=== PATIENT | male | born 1965 | race Hispanic/Latino ===

== ENCOUNTER 2018-04-02 10:51 | Outpatient (CLI) | payer OTHER ==
--- NOTE | 2018-04-02 12:18 | RAD ---
TWO VIEW CHEST: Indications: Cough. History of throat cancer. Comparison: None available. FINDINGS: There is abnormal opacity in the right perihilar region and there is a rounded mass like opacity in t he peripheral right midlung measuring up to 4 cm diameter. Left lung appears clear. Heart and mediastinum otherwise unremarkable. Osseous structures unremarkabl e. IMPRESSION: Abnormal right perihilar opacity and a rounded mass like density in the peripheral right midlung. Met astatic disease to the lung is suspected. I cannot exclude co-existing inflammatory infiltrate. Consi rory follow up chest CT. Code T POS: [facility]
== END 2018-04-02 10:52 | disposition home or self-care (01) ==
LOC: SCSRAD 10:51
PROVIDERS: ATTEND Nurse Practitioner Family
DX: R05 Cough (principal); R91.8 Other nonspecific abnormal finding of lung field
CPT/HCPCS: 71046

== ENCOUNTER 2018-04-05 12:32 | Outpatient (CLI) | payer OTHER ==
--- NOTE | 2018-04-05 14:54 | CT ---
CT CHEST WITH CONTRAST: Technique: Multiple contiguous axial images were obtained through the chest with IV enhancement. Indications: Evidence of right lung mass seen on chest film of 04-02-18. Cough. History of tonsil cance r. FINDINGS: There is prominent right perihilar and mediastinal adenopathy. There is a right perihilar mass measur ing 4.3 cm in the AP dimension on the axial plane. There is a more peripheral mass in the right lung abutting the posterolateral pleural surface measuri ng 3.7 cm AP dimension. The perihilar mass is located in the right middle lobe. The more peripheral m ass is located in the superior segment of the right lower lobe. There is hazy alveolar opacity in the right middle lobe surrounding the described mass which could re present inflammatory infiltrate. There are numerous small pulmonary nodules seen throughout both lungs which were not apparent on plai n film. Most of these nodules are subcentimeter. There is a right lower lobe nodule measuring up to 1 .2 cm and there is a left lower lobe nodule measuring up to 1.0 cm. Images through the upper abdomen are unremarkable. IMPRESSION: 1. Extensive right hilar and mediastinal adenopathy. 2. Right perihilar mass in the right middle lobe with possibly surrounding inflammatory infiltrate. 3. Peripheral pleural based mass in the superior segment right lower lobe as described above. 4. Numerous pulmonary nodules throughout both lungs as described above. POS: [facility]
== END 2018-04-05 12:33 | disposition home or self-care (01) ==
LOC: BICCT 12:32
PROVIDERS: ATTEND Nurse Practitioner Family
DX: R91.8 Other nonspecific abnormal finding of lung field (principal); R59.0 Localized enlarged lymph nodes; Z85.89 Personal history of malignant neoplasm of other organs and systems
CPT/HCPCS: 71260

== ENCOUNTER 2018-05-18 09:06 | Outpatient (CLI) | payer OTHER ==
--- NOTE | 2018-05-18 14:31 | PET ---
PET WITH CT SKULL TO MID THIGH: CLINICAL HISTORY: Pulmonary mass. Reference made to CT chest with contrast dated 04/05/18. There is appropriate biodistribution of radiotracer activity. RADIOTRACER: 11.5 mCi F18-FDG IV intermixed with 10 mL of 0.9% sodium chloride. FINDINGS: There is multifocal hypermetabolic adenopathy of the chest, which infiltrates the right paratracheal region, left prevascular space, and the bilateral hilar regions, as well as the subcarina. Maximum JULIO V is approximately 11, located within the right hilum. There is a mass-like consolidation of the righ t perihilar region with maximum SUV of 8.8. There is an adjacent rounded parenchymal mass of the righ t lower lobe, with maximum SUV of 9.7. Numerous bilateral metastatic pulmonary nodules are present, w hich are below size threshold for PET resolution. Incidental note of mild pericardial fluid. There is coronary artery disease. Incidental note of scatt ered colonic diverticula. IMPRESSION: Evidence of multifocal malignancy of the right lung, with bilateral metastatic adenopathy and bilater al metastatic pulmonary nodules. POS: [facility]
== END 2018-05-18 09:07 | disposition home or self-care (01) ==
LOC: PET 09:06
PROVIDERS: ATTEND Internal Medicine
DX: R91.8 Other nonspecific abnormal finding of lung field (principal); C76.0 Malignant neoplasm of head, face and neck; C34.91 Malignant neoplasm of unspecified part of right bronchus or lung; R59.9 Enlarged lymph nodes, unspecified
CPT/HCPCS: 78815; A9552

== ENCOUNTER 2018-05-25 08:57 | Day surgery (SDC) | payer OTHER ==
[2018-05-21 13:13] VITALS: BMI 28.7
[2018-05-25] MEDS ORDERED: Fentanyl 100 MCG/2 ML VIAL ONE (11:22)
[2018-05-25] MEDS ORDERED: PHENYLEPHRINE-NS 100 MCG/ML 10 ML SYRINGE ONE (13:21)
[2018-05-25] MEDS ORDERED: Ondansetron PF 4 MG/2 ML Vial ONE (13:21)
[2018-05-25] MEDS ORDERED: Rocuronium Bromide 10 MG/ML (10ML VIAL) ONE (13:21)
[2018-05-25] MEDS ORDERED: ePHEDrine 50 MG/ML VIAL ONE (13:21)
[2018-05-25] MEDS ORDERED: Lidocaine 1% PF 5 ML VIAL ONE (13:21)
[2018-05-25] MEDS ORDERED: Glycopyrrolate 0.2 MG/ML 5 ML SYRINGE ONE (13:21)
[2018-05-25] MEDS ORDERED: PROPOFOL 200 MG/20 ML VIAL ONE (13:21)
[2018-05-25 14:47] LABS: BF Color Red; Body Fluid Source Bronchial Washings; Clarity Cloudy/Turbid (Clear); Tube # 1
[2018-05-25 14:48] LABS: RBC Count-Automated 237000 /cumm; WBC/NonHematic-Auto 779 /cumm
[2018-05-25 15:29] LABS: BF Segmented Neutrophils 8 %; Cell Count Non Hematic 75 %; Lymphocytes 17 %
--- NOTE | 2018-05-25 21:06 | OP ---
DATE OF PROCEDURE: 05/25/2018 SERVICE: Pulmonary Medicine. PROCEDURE PERFORMED: 1. Fiberoptic bronchoscopy with: a. Visual airway inspection. b. Endobronchial brush from the right lower lobe. c. Bronchoalveolar lavage from the right lower lobe. d. Transbronchial biopsy of the right lower lobe. 2. Endoscopic bronchial ultrasound-guided transbronchial needle aspiration of stations R3, 7. PREPROCEDURE DIAGNOSES: 1. Pulmonary mass. 2. Mediastinal lymphadenopathy. POSTPROCEDURE DIAGNOSES: 1. Mediastinal lymphadenopathy. 2. Pulmonary mass. MEDICATIONS: For list of medications administered during this procedure, please refer to Anesthesia documentation. PREANESTHESIA ASSESSMENT: H and P had been performed. The patient's medications and allergies were reviewed. CONSENT: Informed consent was obtained after discussing the rationale benefits and risks of the procedure. Alternative options for sample collection were discussed. DESCRIPTION OF PROCEDURE: A time-out was performed. The patient was positively identified with name and date of . The procedure was verified. After induction of anesthesia, a curvilinear endoscopic bronchial ultrasound Olympus bronchoscope was introduced through the endotracheal tube. A limited visual airway inspection was performed with no disease noted within the mainstem bronchi. The bronchoscope was withdrawn, and a wesley survey was performed. Ultimately, endoscopic bronchial guided TBNA of stations R3, and 7 was performed. There was no significant bleeding post biopsy. The patient has stable vitals throughout the procedure. The EBUS bronchoscope was subsequently removed from the patient, and we switched over to diagnostic fiberoptic bronchoscope. The new bronchoscope was introduced, and a tracheobronchial tree inspection was carried out with clear identification of the right upper lobe, right middle lobe, right lower lobe, left upper lobe, lingula, and left lower lobe. Anatomy was essentially normal to the segmental level. There was diffuse endobronchial disease in the right lung, which was not present in the left lung. The area of interest we wanted to get into is a superior segment of the right lower lobe. This was technically challenging. I could not direct the brush or the biopsy forceps into the area of interest. As such, we took some random brushing samples, and transbronchial biopsies under fluoroscopy. That being said, I have a low level of confidence that we got into the area of interest. BAL was also obtained from the superior segment of the right lower lobe. Hemostasis was verified, and the bronchoscope was subsequently removed from the patient. Postprocedure fluoroscopy did not demonstrate a pneumothorax. FINDINGS: 1. Secretions were mild, but quite thick. 2. No endobronchial disease was identified in the left lung. The right lung had diffuse inflammatory changes. 3. The victor m appeared mostly sharp. 4. Rapid on-site examination revealed that lymphoid tissue was obtained. Squamous cell carcinoma was present at both R3 and 7. SPECIMENS OBTAINED: 1. FNA of stations R3, 7. 2. Pathology on BAL, brushings, and transbronchial biopsy. 3. Microbiology on BAL. COMPLICATIONS: None. ESTIMATED BLOOD LOSS: Less than 5 mL. FLUOROSCOPY TIME: Less than 2 minutes. DISPOSITION: The patient will be discharged home with postprocedure instructions. He will return to clinic as previously directed. Job ID: [id number] MTDD
[2018-05-29 10:22] LABS: Fungus Stain Final report (.)
== END 2018-05-25 16:05 | disposition home or self-care (01) ==
LOC: SDC 08:57
PROVIDERS: ATTEND Internal Medicine
PROC: 07D78ZX Extraction of Thorax Lymphatic, Via Natural or Artificial Opening Endoscopic, Diagnostic (ICD-10-PCS; principal; 2018-05-25)
PROC: 0BDF8ZX Extraction of Right Lower Lung Lobe, Via Natural or Artificial Opening Endoscopic, Diagnostic (ICD-10-PCS; principal; 2018-05-25)
PROC: 0B9F8ZX Drainage of Right Lower Lung Lobe, Via Natural or Artificial Opening Endoscopic, Diagnostic (ICD-10-PCS; principal; 2018-05-25)
PROC: 0BBF8ZX Excision of Right Lower Lung Lobe, Via Natural or Artificial Opening Endoscopic, Diagnostic (ICD-10-PCS; principal; 2018-05-25)
DX: C34.31 Malignant neoplasm of lower lobe, right bronchus or lung (principal); C77.1 Secondary and unspecified malignant neoplasm of intrathoracic lymph nodes; B97.7 Papillomavirus as the cause of diseases classified elsewhere; Z79.84 Long term (current) use of oral hypoglycemic drugs; Z79.2 Long term (current) use of antibiotics; Z79.899 Other long term (current) drug therapy
CPT/HCPCS: 85060; 87070; 87102; 87116; 87205; 87206; 88104; 88112; 88172; 88173; 88177; 88305; 88312; 88341; 88342; 89051; J2001; J2405; J2704; J3010; J3490; J7620

== ENCOUNTER 2018-07-06 08:30 | Day surgery (SDC) | payer OTHER ==
[2018-07-05 10:32] VITALS: BMI 41.8
[2018-07-06] MEDS ORDERED: Lidocaine 2% PF 5 ML VIAL ONE (09:06)
[2018-07-06] MEDS ORDERED: Bupivacaine/Epinephrine 0.25% 30 ML VIAL ONE (09:06)
--- NOTE | 2018-07-06 10:31 | RAD ---
SINGLE VIEW OF THE CHEST: COMPARISON: 04/02/2018. HISTORY: Persistent cough. History of throat cancer. FINDINGS: A single view of the chest shows a normal-size cardiomediastinal silhouette. There is a right-sided MediPort with its tip in the superior vena cava. Consolidation is seen in the superior aspect of the right lower lobe. This appears slightly mass-like and could represent either an infiltrate or a mas s. No pleural effusion is seen. IMPRESSION: Right lower lobe infiltrate versus enlarging pulmonary mass. POS: [facility]
--- NOTE | 2018-07-06 13:26 | OP ---
DATE OF PROCEDURE: 07/06/2018 PREOPERATIVE DIAGNOSIS: Lung cancer. POSTOPERATIVE DIAGNOSIS: Lung cancer. PROCEDURE PERFORMED: Tunnelled central line subcutaneous port (MediPort, low-profile, CT injectable). ANESTHESIA: TIVA, local. ESTIMATED BLOOD LOSS: Minimal. COMPLICATIONS: None. SPECIMENS: None. FINDINGS: Tip of the catheter was at the atriocaval junction. DESCRIPTION OF PROCEDURE: The patient was taken to the operating room and laid supine on the operating room table. After sedation was obtained, bilateral neck and chest were shaved, prepped, and draped in a sterile fashion. Local anesthetic was infiltrated over the right internal jugular vein. Internal jugular vein was cannulated using a 22-gauge finder needle, followed by a Seldinger needle. A wire was passed into the superior vena cava under fluoro guidance. A small kerline was made at the wire entrance site. A separate 3-cm incision was made below the clavicle. Subcutaneous pocket was made below the lower incision. Tubing for the MediPort, tunneled from the inferior to superior incision. Introducer sheath was placed over the wire into the superior vena cava under fluoro guidance. The dilator and wire were removed and the end of the catheter was sewed into the sheath. The sheath was peeled away. The tip of the catheter was at the atriocaval junction. MediPort tubing was cut to fit the MediPort at the lower incision, connected to the MediPort. The MediPort sewn to the chest wall and subcutaneous pocket using Prolene. The MediPort flushes and draws blood without difficulty. It was flushed with a heparin flush. The wounds were irrigated and closed in 3-0 Vicryl, 4-0 Monocryl, and Dermabond. The patient was sent to recovery in stable condition. All instrument counts, needle counts, and lap counts were correct. Job ID: [id number]
[2018-07-06] MEDS ORDERED: PROPOFOL 200 MG/20 ML VIAL ONE (16:34)
== END 2018-07-06 11:38 | disposition home or self-care (01) ==
LOC: SDC 08:30
PROVIDERS: ATTEND Surgery
PROC: 0JH63WZ Insertion of Totally Implantable Vascular Access Device into Chest Subcutaneous Tissue and Fascia, Percutaneous Approach (ICD-10-PCS; principal; 2018-07-06)
DX: C34.90 Malignant neoplasm of unspecified part of unspecified bronchus or lung (principal); C09.9 Malignant neoplasm of tonsil, unspecified; E11.9 Type 2 diabetes mellitus without complications; I10 Essential (primary) hypertension; E78.5 Hyperlipidemia, unspecified; K21.9 Gastro-esophageal reflux disease without esophagitis; E03.9 Hypothyroidism, unspecified; Z79.84 Long term (current) use of oral hypoglycemic drugs; Z79.899 Other long term (current) drug therapy; Z88.8 Allergy status to other drugs, medicaments and biological substances
CPT/HCPCS: 71045; C1788; J0690; J1642; J2001

== ENCOUNTER 2018-10-03 08:22 | Outpatient (CLI) | payer OTHER ==
[2018-10-03] MEDS ORDERED: Iopamidol 370 76% 100 ML VIAL ONE (09:00)
--- NOTE | 2018-10-03 10:29 | CT ---
CT CHEST WITH IV CONTRAST: Date: 10/03/18 Multiple axial tomograms obtained through the chest with IV enhancement. 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 Post chemo therapy. Evaluate response. Comparison made to CT chest dated 04/05/18. Correlation made to the PET CT of which shows no significant change when compared to the CT chest of 04/05/18. FINDINGS: There has been significant regression in neoplasm involving the chest when compared to the prior exam . The large right hilar mass noted previously has resolved. There is now only peribronchial thickenin g in the right hilar region at this site. The mass seen in the periphery abutting the pleural surface superior segment right lower lobe has sig nificantly regressed. A residual mass along the fissure is seen today measuring 1.8 cm on the axial i mages. This previously measured 3.7 cm on the axial images. The numerous bilateral pulmonary nodules have also regressed. There is a 1.0 cm nodule in the anterio r right mid lung, image 45, axial, probably right middle lobe. Ill-defined nodule in the posterior ri ght lower lobe, image 48, measuring 8 mm. No definite left lung nodule is seen today. The mediastinal adenopathy has regressed. The large right paratracheal lymph node now measures only 1 .0 cm. Images through upper abdomen unremarkable. Osseous structures unremarkable. IMPRESSION: Significant regression of the neoplasm seen in the lungs and mediastinum when compared to the prior e xam as described above. POS: [facility]
== END 2018-10-03 08:23 | disposition home or self-care (01) ==
LOC: SCSCT 08:22
PROVIDERS: ATTEND Internal Medicine Hematology & Oncology
DX: C78.01 Secondary malignant neoplasm of right lung (principal); C10.2 Malignant neoplasm of lateral wall of oropharynx
CPT/HCPCS: 71260; 82565; Q9967

== ENCOUNTER 2019-02-18 08:06 | Outpatient (CLI) | payer OTHER ==
--- NOTE | 2019-02-18 09:52 | CT ---
CT Chest W Con History: Oropharyngeal cancer. Metastatic disease to lungs. Comparison: CT chest October 2018 Findings: There are a few new faint groundglass opacities within the posterior segment right lower lo be. The spiculated nodule within the anterior segment right lower lobe is size unchanged. The right middle lobe nodule axial image 73 is size unchanged. No new suspicious pulmonary nodule. No pneumothorax. No effusion. No mediastinal adenopathy. No pericardial effusion. Upper abdomen is unremarkable. No axillary or internal mammary adenopathy. Thoracic spine is without compression fracture. Sternum and manubrium are intact. Celiac trunk and finn perior mesenteric arteries are patent. No displaced rib fracture. No acute osseous abnormality. Impression: Unchanged examination of the chest. No new pulmonary nodules.
[2019-02-18] MEDS ORDERED: Iopamidol-370 76% 500 ML 1 ML ONE (11:19)
== END 2019-02-18 08:07 | disposition home or self-care (01) ==
LOC: BICCT 08:06
PROVIDERS: ATTEND Internal Medicine Hematology & Oncology
DX: C10.2 Malignant neoplasm of lateral wall of oropharynx (principal); C78.01 Secondary malignant neoplasm of right lung
CPT/HCPCS: 71260; Q9967

== ENCOUNTER 2019-05-20 07:33 | Outpatient (CLI) | payer OTHER ==
--- NOTE | 2019-05-20 08:48 | CT ---
CT OF THE CHEST WITH IV CONTRAST INDICATION: History of malignant secondary neoplasm to the thorax; history of metastatic head and nec k cancer to the lungs COMPARISON: CT of the thorax with contrast dated February 18, 2019, November 19, 2018, October 03, 2018 an d April 05, 2018 FINDINGS: CHEST: Lungs: The residual pulmonary nodules within the superior segment of the right lower lobe and medial segment of the right middle lobe have decreased in size from the most recent comparison. The spiculated nodule with surrounding scar in the superior segment of the right lower lobe on image 36 o f series 3 measures 1.5 cm where it previously measured 1.8 cm. The small nodule within the medial right middle lobe on image 44 of series 3 measures 8 x 5 mm where it previously measured 9 x 6 mm. No new pulmonary nodules are identified. Pleural space: No effusion. Mediastinum: There are scattered coronary artery and thoracic aortic calcifications. No pathologicall y enlarged lymph nodes are evident. Upper abdomen:No acute abnormality. Osseous structures: No acute osseous abnormality. No destructive osteolytic or osteoblastic lesion i s identified. There is scattered degenerative and osteoarthritic changes. Soft tissues:Stable right chest wall port. IMPRESSION: 1. Findings consistent with response to therapy. Decrease in size of the residual pulmonary nodules i n the right lower lobe and right middle lobe. No new pulmonary nodules identified.
[2019-05-20 10:26] LABS: #Lymphocytes 0.3 thou/uL (1.20-3.40); #Monocytes 0.5 thou/uL (0.11-0.59); #Neutrophils 4.2 thou/uL (1.40-6.50); %Basophils 0.1 % (0.0-1.0); %Eosinophils 0.4 % (0.0-10.0); %Lymphocytes 6.3 % (21.0-51.0); %Monocytes 9.5 % (0.0-10.0); %Neutrophils 83.7 % (42.0-75.0); Mean Corpuscular Hemoglobin 31.7 pg (27.0-31.0); Mean Corpuscular Volume 90.5 fL (78.0-98.0); Mean Platelet Volume 9.4 fL (7.4-10.4); Platelet Count 142 thou/uL (130-400); RBC Distribution Width 12.5 % (11.5-14.5); Red Blood Cell (RBC) Count 4.09 mill/uL (4.70-6.10)
== END 2019-05-20 07:34 | disposition home or self-care (01) ==
LOC: SCSCT 07:33
PROVIDERS: ATTEND Internal Medicine Hematology & Oncology
DX: C76.0 Malignant neoplasm of head, face and neck (principal); C10.2 Malignant neoplasm of lateral wall of oropharynx; C78.01 Secondary malignant neoplasm of right lung; R91.8 Other nonspecific abnormal finding of lung field
CPT/HCPCS: 71260; 85025

== ENCOUNTER 2019-08-12 09:14 | Outpatient (CLI) | payer OTHER ==
[2019-08-12] MEDS ORDERED: Iopamidol 370 76% 100 ML VIAL ONE (09:50)
--- NOTE | 2019-08-12 11:09 | CT ---
CT CHEST WITH IV CONTRAST: Date: 08/12/2019 HISTORY: Stage IV lung cancer. Status post chemotherapy. 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 Sec ondary malignant neoplasm of right lung. COMPARISON: 05/20/2019. FINDINGS: No mediastinal, hilar, or axillary mass or lymphadenopathy is seen. No pleural or pericardial effusio ns are identified. There has been interval increase in size of the residual density in the superior segment of the right lower lobe measuring about 3.5 cm. An 8.0 mm nodule in the right middle lobe is stable. There are mu ltiple small new pulmonary nodules noted bilaterally measuring up to 7-8 mm. Increased peribronchial thickening is seen in the right perihilar region. Upper abdominal tomograms demonstrate no significant abnormalities. There are degenerative changes in the spine. No osteolytic or osteoblastic lesions are noted. IMPRESSION: New bilateral pulmonary metastases since 05/20/2019. POS: [facility]
== END 2019-08-12 09:15 | disposition home or self-care (01) ==
LOC: CT 09:14
PROVIDERS: ATTEND Internal Medicine Hematology & Oncology
DX: C10.2 Malignant neoplasm of lateral wall of oropharynx (principal); C78.01 Secondary malignant neoplasm of right lung
CPT/HCPCS: 71260; 82565; Q9967

== ENCOUNTER 2021-12-06 10:32 | Outpatient (CLI) | payer BC | END 2021-12-06 10:33 | disposition home or self-care (01) | LOC: ULT 10:32 | PROVIDERS: ATTEND Physician Assistant Medical | DX: R10.9 Unspecified abdominal pain (principal); R11.2 Nausea with vomiting, unspecified; K80.20 Calculus of gallbladder without cholecystitis without obstruction | CPT/HCPCS: 76700 ==

== ENCOUNTER 2022-04-01 10:57 | Outpatient (CLI) | payer BC | END 2022-04-01 10:58 | disposition home or self-care (01) | LOC: BICCT 10:57 | PROVIDERS: ATTEND Internal Medicine Hematology & Oncology | DX: C10.9 Malignant neoplasm of oropharynx, unspecified (principal); C78.01 Secondary malignant neoplasm of right lung; I31.39 Other pericardial effusion (noninflammatory); R59.0 Localized enlarged lymph nodes; R91.8 Other nonspecific abnormal finding of lung field; K80.20 Calculus of gallbladder without cholecystitis without obstruction | CPT/HCPCS: 71260 ==

== ENCOUNTER 2022-07-13 09:16 | Outpatient (CLI) | payer BC ==
[2022-07-13] MEDS ORDERED: Iopamidol 370 76% 100 ML VIAL ONE (15:18)
== END 2022-07-13 09:17 | disposition home or self-care (01) ==
LOC: CT 09:16
PROVIDERS: ATTEND Internal Medicine Hematology & Oncology
DX: C10.2 Malignant neoplasm of lateral wall of oropharynx (principal); C78.01 Secondary malignant neoplasm of right lung; D50.0 Iron deficiency anemia secondary to blood loss (chronic); J98.59 Other diseases of mediastinum, not elsewhere classified
CPT/HCPCS: 71260; Q9967

== ENCOUNTER 2022-07-27 10:00 | Outpatient (CLI) | payer BC ==
[~2022-07-27 10:00] MED LIST: Iopamidol 370 76% 100 ML VIAL ONE
== END 2022-07-27 10:01 | disposition home or self-care (01) ==
LOC: CT 10:00
PROVIDERS: ATTEND Internal Medicine Hematology & Oncology
DX: C10.2 Malignant neoplasm of lateral wall of oropharynx (principal); C78.01 Secondary malignant neoplasm of right lung; C22.9 Malignant neoplasm of liver, not specified as primary or secondary
CPT/HCPCS: 74177; Q9967

== ENCOUNTER 2022-09-20 11:10 | Inpatient (IN) | payer BC ==
[~2022-09-20 11:10] MED LIST changes: -Iopamidol 370 76% 100 ML VIAL ONE; +Iopamidol-370 76% 500 ML MDV (1 ML CHARGE) ONE
[2022-09-20 11:46] LABS: Hemoglobin 10.7 g/dL (14.0-18.0); Mean Corpuscular HGB CONC 33.9 g/dL (32.0-36.0); Mean Corpuscular Hemoglobin 30.6 pg (27.0-31.0); Mean Corpuscular Volume 90.3 fl (78.0-98.0); Mean Platelet Volume 9.3 fL (7.4-10.4); Platelet Count 206 10x3/uL (130-400); RBC Distribution Width 13.6 % (11.5-14.5); White Blood Cell (WBC) Count 18.2 10x3/uL (4.8-10.8)
[2022-09-20 11:48] LABS: Delete Auto Diff?? YES; Manual Diff?? YES
[2022-09-20] MEDS ORDERED: fentaNYL 50 mcg/mL 1 mL Vial ONE (11:52)
[2022-09-20 12:04] LABS: INR-International Normal Ratio 1.2; PTT 29.1 sec (22.9-36.1); Prothrombin Time 15.6 sec (12.0-14.7)
[2022-09-20 12:10] LABS: ALT (SGPT) Less than 7 U/L (8-55); AST (SGOT) 9 U/L (5-34); Albumin 3.3 g/dL (3.5-5.0); Alkaline Phosphatase 77 U/L (40-110); Anion Gap 19 mmol/L (10-20); BUN (Urea Nitrogen) 32 mg/dL (8.4-25.7); Band 32 % (5-11); Bilirubin, Total 0.7 mg/dL (0.2-1.2); Burr Cells SLIGHT = 2-5 cells HPF (0-1); CK (CPK) 44 U/L (30-200); Calc. Creatinine Clearance 0 mL/min (70-130); Calcium 8.4 mg/dL (7.8-10.44); Carbon Dioxide 23 mmol/L (22-29); Chloride 91 mmol/L (98-107); Estimated GFR 39; Globulin 2.5 g/dL (2.4-3.5); Lipase 7 U/L (8-78); Lymphocytes 1 % (21-51); Neutrophil 67 % (42-75); Platelet Adequacy Comment Platelets Normal; Polychromasia SLIGHT = 2-3 cells HPF (0-2); Potassium 4.2 mmol/L (3.5-5.1); Protein, Total 5.8 g/dL (6.0-8.3); Sodium 129 mmol/L (136-145); Total Cell Count 100
[2022-09-20 12:15] LABS: Glucose 574 mg/dL (70-105)
[2022-09-20] MEDS ORDERED: Vancomycin 1 GM/200 ML (FROZEN) BAG ONE (12:18)
[2022-09-20] MEDS ORDERED: Cefepime 2 GM VIAL ONE (12:18)
[2022-09-20] MEDS ORDERED: Insulin Regular 300 UNITS/3 ML VIAL ONE (12:58)
[2022-09-20 13:05] LABS: Bacteria/HPF None Seen HPF (None Seen); Bilirubin Negative (Negative); Blood, Urine Negative (Negative); CAUTI Indications for Culture Fever or rigors; Clarity Clear (Clear); Glucose, Urine (Dipstick) Greater than 1000 mg/dL (Negative); Ketone, Urine Negative (Negative); Leukocyte Negative Leu/uL (Negative); Nitrite Negative (Negative); Protein, Urine (Dipstick) 30 mg/dL (Neg-Trace); RBC/HPF 0-3 HPF (0-3); Specific Gravity, Urine 1.021 (1.002-1.036); Squamous Epithelial None Seen HPF (0-3); Urobilinogen Normal mg/dL (Less than 2); WBC/HPF 0-3 HPF (0-3)
[2022-09-20 13:13] LABS: Urine Culture Reflex No No
[2022-09-20] MEDS ORDERED: Dextrose 5% in Water 1,000 ML IV PRN (14:24)
[2022-09-20] MEDS ORDERED: Dextrose 50% Abboject 50 ML SYRINGE SLOW IVP PRN (14:24)
[2022-09-20] MEDS ORDERED: Glucagon 1 MG/ML KIT IM PRN (14:24)
[2022-09-20] MEDS ORDERED: Ondansetron ODT 4 MG TAB PO PRN (14:24)
[2022-09-20] MEDS ORDERED: HumaLOG 300 UNITS/3 ML VIAL SC PRN (14:24)
[2022-09-20] MEDS ORDERED: Ondansetron PF 4 MG/2 ML Vial IVP PRN (14:24)
[2022-09-20] MEDS ORDERED: Acetaminophen 650 MG Suppository PR PRN (14:24)
[2022-09-20] MEDS ORDERED: Pantoprazole 40 MG VIAL IVP SCH (14:36)
[2022-09-20] MEDS ORDERED: methylPREDNISolone Sod Succ 40 MG VIAL IVP SCH ×2 (14:39→14:45)
[2022-09-20] MEDS ORDERED: GUAIFENESIN SF SOLN 200 MG/10 ML UDCUP PO PRN (14:40)
[2022-09-20 14:41] LABS: Lactic Acid 2.5 mmol/L (0.5-2.2)
[2022-09-20] MEDS ORDERED: Morphine 2 MG/ML VIAL SLOW IVP SCH (16:15)
[2022-09-20] MEDS: Sodium Chloride 0.9% 1,000 ML IV SCH (17:11)
[2022-09-20 17:43] LABS: Anion Gap 15 mmol/L (10-20); BUN (Urea Nitrogen) 29 mg/dL (8.4-25.7); Calc. Creatinine Clearance 55 mL/min (70-130); Calcium 8.7 mg/dL (7.8-10.44); Carbon Dioxide 22 mmol/L (22-29); Chloride 96 mmol/L (98-107); Estimated GFR 44; Glucose 334 mg/dL (70-105); Potassium 3.9 mmol/L (3.5-5.1); Sodium 129 mmol/L (136-145)
[2022-09-20 18:21] VITALS: BMI 26.4
[2022-09-20 18:24] LABS: Legionella Urinary Ag Negative (Negative); Strep pneumo Urine Ag NEGATIVE (NEGATIVE)
[2022-09-20] MEDS: methylPREDNISolone Sod Succ 40 MG VIAL IVP SCH (21:00)
[2022-09-20] MEDS: HumaLOG 300 UNITS/3 ML VIAL SC PRN (21:12)
[2022-09-20] MEDS: Acetaminophen 325 MG TAB PO PRN (21:13)
[2022-09-20] MEDS: Promethazine HCl 12.5 MG in Sodium Chloride 0.9% 50 ML IVPB PRN (23:35)
[2022-09-20] MEDS ORDERED: Cefepime 2 GM in Sodium Chloride 0.9% 100 ML IVPB SCH (23:59)
[2022-09-21] MEDS: HumaLOG 300 UNITS/3 ML VIAL SC PRN ×5 (00:50→21:51)
[2022-09-21] MEDS: HYDROcodone/Acetaminophen 5/325 mg Tablet PO PRN ×3 (00:50→16:52)
[2022-09-21] MEDS: Sodium Chloride 0.9% 1,000 ML IV SCH ×3 (02:26→21:50)
[2022-09-21] MEDS: Levothyroxine Sodium 112 MCG TAB PO SCH (04:27)
[2022-09-21 06:15] LABS: #Basophils 0.1 thou/uL (0.0-0.2); #Monocytes 0.2 thou/uL (0.11-0.59); #Neutrophils 14.4 thou/uL (1.40-6.50); %Basophils 0.4 % (0.0-1.0); %Lymphocytes 1.6 % (21.0-51.0); %Monocytes 1.3 % (0.0-10.0); %Neutrophils 91.8 % (42.0-75.0); Hemoglobin 10.5 g/dL (14.0-18.0); Mean Corpuscular HGB CONC 32.4 g/dL (32.0-36.0); Mean Corpuscular Hemoglobin 30.5 pg (27.0-31.0); Mean Platelet Volume 9.9 fL (7.4-10.4); Platelet Count 174 10x3/uL (130-400); RBC Distribution Width 13.8 % (11.5-14.5); Red Blood Cell (RBC) Count 3.44 mill/uL (4.70-6.10); White Blood Cell (WBC) Count 15.7 10x3/uL (4.8-10.8)
[2022-09-21] MEDS: methylPREDNISolone Sod Succ 40 MG VIAL IVP SCH (06:17)
[2022-09-21 06:24] LABS: Manual Diff?? YES; Mean Corpuscular Volume 94.2 fl (78.0-98.0)
[2022-09-21 06:43] LABS: ALT (SGPT) Less than 7 U/L (8-55); AST (SGOT) 7 U/L (5-34); Albumin 2.9 g/dL (3.5-5.0); Alkaline Phosphatase 69 U/L (40-110); Anion Gap 14 mmol/L (10-20); BUN (Urea Nitrogen) 35 mg/dL (8.4-25.7); Bilirubin, Total 0.4 mg/dL (0.2-1.2); Calc. Creatinine Clearance 56 mL/min (70-130); Calcium 8.6 mg/dL (7.8-10.44); Carbon Dioxide 19 mmol/L (22-29); Chloride 98 mmol/L (98-107); Estimated GFR 44; Globulin 2.8 g/dL (2.4-3.5); Glucose 342 mg/dL (70-105); Potassium 4.1 mmol/L (3.5-5.1); Protein, Total 5.7 g/dL (6.0-8.3); Sodium 127 mmol/L (136-145)
[2022-09-21 07:12] LABS: Band 19 % (5-11); Burr Cells MODERATE= 6-15 cells HPF (0-1); CellaVision Operator ID LAB.GE; Lymphocytes 1 % (21-51); Neutrophil 80 % (42-75); Platelet Adequacy Comment Platelets Normal; Polychromasia SLIGHT = 2-3 cells HPF (0-2); Total Cell Count 102
[2022-09-21] MEDS: guaiFENesin/Codeine 200 mg/20 mg 10 ml Cup PO SCH ×2 (08:33→21:49)
[2022-09-21] MEDS: Pantoprazole 40 MG VIAL IVP SCH (08:33)
[2022-09-21] MEDS ORDERED: Insulin Glargine 30 UNITS/0.3 ML VIAL SC SCH ×4 (09:15→21:00)
[2022-09-21] MEDS ORDERED: Ipratropium/Albuterol 3 ML NEB NEB PRN (09:21)
[2022-09-21] MEDS ORDERED: HYDROcodone/Acetaminophen 5/325 mg Tablet PO PRN (09:27)
[2022-09-21] MEDS ORDERED: metroNIDAZOLE 500 MG TAB PO SCH (09:30)
[2022-09-21] MEDS: Promethazine HCl 12.5 MG in Sodium Chloride 0.9% 50 ML IVPB PRN (10:29)
[2022-09-21] MEDS: Ipratropium/Albuterol 3 ML NEB NEB SCH ×4 (10:57→23:39)
[2022-09-21] MEDS ORDERED: Cefepime 2 GM in Sodium Chloride 0.9% 100 ML IVPB SCH (12:00)
[2022-09-21] MEDS ORDERED: VANCOMYCIN 1.25 GM/250 ML BAG 1.25 GM in Premix Bag 1 BAG IVPB SCH (13:00)
[2022-09-21] MEDS: metroNIDAZOLE 500 MG TAB PO SCH ×2 (14:02→21:50)
[2022-09-21] MEDS ORDERED: [UNRECOGNIZED DRUG - MIXTURE] SSW PRN (15:29)
[2022-09-21] MEDS: Budesonide 0.5 MG/2 ML NEB NEB SCH (19:03)
[2022-09-21] MEDS: Senokot S 8.6-50 MG TAB PO SCH (21:47)
[2022-09-21] MEDS: Carvedilol 3.125 MG TAB PO SCH (21:49)
[2022-09-21] MEDS: Polyethylene Glycol 3350 17 GM Packet PO SCH (21:50)
[2022-09-22] MEDS: Cefepime 1 GM in Sodium Chloride 0.9% 100 ML IVPB SCH ×2 (00:19→12:54)
[2022-09-22] MEDS: Sodium Chloride 0.9% 1,000 ML IV SCH ×3 (00:19→20:11)
[2022-09-22] MEDS: Ipratropium/Albuterol 3 ML NEB NEB SCH ×6 (03:59→22:19)
[2022-09-22] MEDS: Levothyroxine Sodium 112 MCG TAB PO SCH (05:05)
[2022-09-22] MEDS: Acetaminophen 325 MG TAB PO PRN (05:08)
[2022-09-22] MEDS: Budesonide 0.5 MG/2 ML NEB NEB SCH ×2 (07:55→22:19)
[2022-09-22] MEDS ORDERED: Insulin Glargine 30 UNITS/0.3 ML VIAL SC SCH ×2 (09:00→21:15)
[2022-09-22 09:06] LABS: Hemoglobin 10.1 g/dL (14.0-18.0); Mean Corpuscular HGB CONC 33.3 g/dL (32.0-36.0); Mean Corpuscular Hemoglobin 29.9 pg (27.0-31.0); Mean Corpuscular Volume 89.6 fl (78.0-98.0); Mean Platelet Volume 9.7 fL (7.4-10.4); Platelet Count 176 10x3/uL (130-400); RBC Distribution Width 13.7 % (11.5-14.5); Red Blood Cell (RBC) Count 3.38 mill/uL (4.70-6.10); White Blood Cell (WBC) Count 15.6 10x3/uL (4.8-10.8)
[2022-09-22 09:11] LABS: Delete Auto Diff?? YES; Manual Diff?? YES
[2022-09-22 09:14] LABS: Hemoglobin A1c 9.9 % (4.0-6.0)
[2022-09-22] MEDS: metroNIDAZOLE 500 MG TAB PO SCH ×2 (09:18→19:09)
[2022-09-22] MEDS: Carvedilol 3.125 MG TAB PO SCH ×2 (09:18→20:24)
[2022-09-22] MEDS: Senokot S 8.6-50 MG TAB PO SCH ×2 (09:18→20:24)
[2022-09-22] MEDS: guaiFENesin/Codeine 200 mg/20 mg 10 ml Cup PO SCH ×2 (09:19→20:24)
[2022-09-22 09:27] LABS: ALT (SGPT) 8 U/L (8-55); AST (SGOT) 9 U/L (5-34); Albumin 2.8 g/dL (3.5-5.0); Alkaline Phosphatase 75 U/L (40-110); Anion Gap 14 mmol/L (10-20); BUN (Urea Nitrogen) 42 mg/dL (8.4-25.7); Bilirubin, Total 0.4 mg/dL (0.2-1.2); Calc. Creatinine Clearance 64 mL/min (70-130); Carbon Dioxide 21 mmol/L (22-29); Chloride 100 mmol/L (98-107); Estimated GFR 52; Globulin 2.9 g/dL (2.4-3.5); Glucose 265 mg/dL (70-105); Magnesium 1.4 mg/dL (1.6-2.6); Phosphorus 3.3 mg/dL (2.3-4.7); Potassium 3.8 mmol/L (3.5-5.1); Protein, Total 5.7 g/dL (6.0-8.3); Sodium 131 mmol/L (136-145)
[2022-09-22 09:38] LABS: CRP (Inflammatory) 32.33 mg/dL (= or < 0.5)
[2022-09-22 09:41] LABS: Anisocytosis SLIGHT = 6-15 cells HPF (0-5); Band 17 % (5-11); Burr Cells SLIGHT = 2-5 cells HPF (0-1); Lymphocytes 2 % (21-51); Monocytes 3 % (0-10); Neutrophil 79 % (42-75); Platelet Adequacy Comment Platelets Normal; Poikilocytosis SLIGHT = 6-15 cells HPF (0-5); Polychromasia SLIGHT = 2-3 cells HPF (0-2); Smudge Cells 3.9 %; Total Cell Count 103
[2022-09-22] MEDS ORDERED: Electrolyte Replacement Protocol 1 EACH FS SCH (10:45)
[2022-09-22] MEDS ORDERED: Sodium Chloride 0.9% 1,000 ML IV SCH (10:57)
[2022-09-22] MEDS: Pantoprazole 40 MG VIAL IVP SCH (11:04)
[2022-09-22 12:01] LABS: Vancomycin, Trough 12.3 ug/mL
[2022-09-22] MEDS ORDERED: Magnesium Sulfate In Water 4 GM in Premix Bag 1 BAG IVPB SCH (12:45)
[2022-09-22] MEDS ORDERED: Vancomycin 1.5 GRAM/300 ML BAG 1.5 GM in Premix Bag 1 BAG IVPB SCH (13:00)
[2022-09-22] MEDS: Promethazine HCl 12.5 MG in Sodium Chloride 0.9% 50 ML IVPB PRN (13:11)
[2022-09-22] MEDS ORDERED: Metoprolol Tartrate 25 MG TAB PO SCH (14:15)
[2022-09-22] MEDS ORDERED: Diltiazem 125 MG in Sodium Chloride 0.9% 100 ML IVPB SCH (15:30)
[2022-09-22] MEDS: Diltiazem 125 MG in Sodium Chloride 0.9% 100 ML IVPB SCH (15:33)
[2022-09-22] MEDS ORDERED: Meropenem 1 GM in Sodium Chloride 0.9% 100 ML IVPB SCH ×2 (18:00→22:00)
[2022-09-22] MEDS ORDERED: predniSONE 20 MG TAB PO SCH (18:15)
[2022-09-22] MEDS: guaiFENesin ER 600 MG TAB PO SCH ×2 (20:24→23:14)
[2022-09-22] MEDS: Polyethylene Glycol 3350 17 GM Packet PO SCH (20:24)
[2022-09-23] MEDS: Meropenem 1 GM in Sodium Chloride 0.9% 100 ML IVPB SCH ×3 (01:52→23:57)
[2022-09-23] MEDS: Ipratropium/Albuterol 3 ML NEB NEB SCH ×6 (03:18→22:25)
[2022-09-23 05:33] LABS: Hemoglobin 10.5 g/dL (14.0-18.0); Mean Corpuscular HGB CONC 34.2 g/dL (32.0-36.0); Mean Corpuscular Hemoglobin 30.2 pg (27.0-31.0); Mean Corpuscular Volume 88.2 fl (78.0-98.0); Mean Platelet Volume 9.8 fL (7.4-10.4); Platelet Count 154 10x3/uL (130-400); RBC Distribution Width 13.7 % (11.5-14.5); Red Blood Cell (RBC) Count 3.48 mill/uL (4.70-6.10); White Blood Cell (WBC) Count 17.3 10x3/uL (4.8-10.8)
[2022-09-23 05:55] LABS: ALT (SGPT) 11 U/L (8-55); AST (SGOT) 11 U/L (5-34); Alkaline Phosphatase 85 U/L (40-110); Anion Gap 15 mmol/L (10-20); BUN (Urea Nitrogen) 40 mg/dL (8.4-25.7); Bilirubin, Total 0.4 mg/dL (0.2-1.2); Calc. Creatinine Clearance 66 mL/min (70-130); Calcium 9.1 mg/dL (7.8-10.44); Carbon Dioxide 21 mmol/L (22-29); Chloride 101 mmol/L (98-107); Estimated GFR 53; Globulin 2.8 g/dL (2.4-3.5); Glucose 210 mg/dL (70-105); Magnesium 2.2 mg/dL (1.6-2.6); Phosphorus 2.9 mg/dL (2.3-4.7); Potassium 3.5 mmol/L (3.5-5.1); Protein, Total 5.8 g/dL (6.0-8.3); Sodium 133 mmol/L (136-145)
[2022-09-23] MEDS: Levothyroxine Sodium 112 MCG TAB PO SCH (06:07)
[2022-09-23 06:27] LABS: Delete Auto Diff?? YES; Manual Diff?? YES
[2022-09-23 06:48] LABS: Band 9 % (5-11); Burr Cells MODERATE= 6-15 cells HPF (0-1); CellaVision Operator ID LAB.GE; Neutrophil 91 % (42-75); Platelet Adequacy Comment Platelets Normal; Poikilocytosis SLIGHT = 6-15 cells HPF (0-5); Polychromasia SLIGHT = 2-3 cells HPF (0-2); Total Cell Count 100
[2022-09-23] MEDS ORDERED: predniSONE 20 MG TAB PO SCH (08:00)
[2022-09-23] MEDS ORDERED: Potassium Chloride 20 MEQ TAB PO SCH (08:00)
[2022-09-23] MEDS: Budesonide 0.5 MG/2 ML NEB NEB SCH ×2 (08:03→18:48)
[2022-09-23] MEDS ORDERED: Insulin Glargine 30 UNITS/0.3 ML VIAL SC SCH ×3 (09:00→20:15)
[2022-09-23] MEDS: Sodium Chloride 0.9% 1,000 ML IV SCH (10:03)
[2022-09-23] MEDS: Senokot S 8.6-50 MG TAB PO SCH (10:06)
[2022-09-23] MEDS: Pantoprazole 40 MG VIAL IVP SCH (10:07)
[2022-09-23] MEDS: Carvedilol 3.125 MG TAB PO SCH (10:07)
[2022-09-23] MEDS: guaiFENesin ER 600 MG TAB PO SCH ×2 (10:07→23:59)
[2022-09-23] MEDS: guaiFENesin/Codeine 200 mg/20 mg 10 ml Cup PO SCH (10:08)
[2022-09-23] MEDS: Diltiazem 125 MG in Sodium Chloride 0.9% 100 ML IVPB SCH (11:43)
[2022-09-23 16:25] VITALS: BP 170/79
[2022-09-23] MEDS ORDERED: Morphine 4 MG/ML VIAL ONE (16:51)
[2022-09-23] MEDS ORDERED: Morphine 4 MG/ML VIAL SLOW IVP SCH (17:15)
[2022-09-23] MEDS ORDERED: fentaNYL 50 mcg/hour Patch TD SCH (17:15)
[2022-09-23] MEDS ORDERED: Morphine 4 MG/ML VIAL SLOW IVP PRN (17:15)
[2022-09-23] MEDS ORDERED: Ondansetron PF 4 MG/2 ML Vial IVP PRN (18:53)
[2022-09-23] MEDS ORDERED: Ondansetron PF 4 MG/2 ML Vial IVP SCH (19:00)
[2022-09-23 20:10] VITALS: TEMP 97
[2022-09-23] MEDS: Morphine 4 MG/ML VIAL SLOW IVP PRN ×4 (20:58→22:23)
[2022-09-23] MEDS ORDERED: Carvedilol 6.25 MG TAB PO SCH (21:00)
[2022-09-23] MEDS: Lorazepam 2 MG/ML VIAL SLOW IVP PRN ×2 (21:13→22:13)
[2022-09-24] MEDS: Polyethylene Glycol 3350 17 GM Packet PO SCH
[2022-09-24] MEDS: guaiFENesin/Codeine 200 mg/20 mg 10 ml Cup PO SCH
[2022-09-24] MEDS: Senokot S 8.6-50 MG TAB PO SCH (00:01)
== END 2022-09-23 22:38 | disposition expired | DRG 871 ==
LOC: ERS 11:10 → ERHOLD 13:52 → T4-A 15:39 → 2SW 18:08 → IMCU/EMU 09-23 16:12 → CCU 09-23 17:20
PROVIDERS: ADMIT Internal Medicine; ATTEND Internal Medicine
PROC: 3E03329 Introduction of Other Anti-infective into Peripheral Vein, Percutaneous Approach (ICD-10-PCS; 2022-09-20)
PROC: 0W9930Z Drainage of Right Pleural Cavity with Drainage Device, Percutaneous Approach (ICD-10-PCS; principal; 2022-09-23)
PROC: 5A09357 Assistance with Respiratory Ventilation, Less than 24 Consecutive Hours, Continuous Positive Airway Pressure (ICD-10-PCS; 2022-09-23)
PROC: 5A0935A Assistance with Respiratory Ventilation, Less than 24 Consecutive Hours, High Flow/Velocity Cannula (ICD-10-PCS; 2022-09-23)
DX: A40.8 Other streptococcal sepsis (principal); J18.9 Pneumonia, unspecified organism; J96.01 Acute respiratory failure with hypoxia; C78.00 Secondary malignant neoplasm of unspecified lung; C78.89 Secondary malignant neoplasm of other digestive organs; C78.7 Secondary malignant neoplasm of liver and intrahepatic bile duct; E87.1 Hypo-osmolality and hyponatremia; I31.39 Other pericardial effusion (noninflammatory); J93.9 Pneumothorax, unspecified; E44.0 Moderate protein-calorie malnutrition; E87.20 Acidosis, unspecified; I42.9 Cardiomyopathy, unspecified; N17.9 Acute kidney failure, unspecified; Z66 Do not resuscitate; R65.20 Severe sepsis without septic shock; C09.9 Malignant neoplasm of tonsil, unspecified; E03.9 Hypothyroidism, unspecified; E78.5 Hyperlipidemia, unspecified; K21.9 Gastro-esophageal reflux disease without esophagitis; E11.22 Type 2 diabetes mellitus with diabetic chronic kidney disease; I12.9 Hypertensive chronic kidney disease with stage 1 through stage 4 chronic kidney disease, or unspecified chronic kidney disease; N18.30 Chronic kidney disease, stage 3 unspecified; E11.65 Type 2 diabetes mellitus with hyperglycemia; I48.91 Unspecified atrial fibrillation; D64.81 Anemia due to antineoplastic chemotherapy; T45.1X5A Adverse effect of antineoplastic and immunosuppressive drugs, initial encounter; Z88.8 Allergy status to other drugs, medicaments and biological substances; Z79.84 Long term (current) use of oral hypoglycemic drugs; Z90.89 Acquired absence of other organs; Z83.3 Family history of diabetes mellitus; Z98.890 Other specified postprocedural states; Z79.82 Long term (current) use of aspirin; Z79.51 Long term (current) use of inhaled steroids; Z79.899 Other long term (current) drug therapy; Z87.891 Personal history of nicotine dependence; Z68.26 Body mass index [BMI] 26.0-26.9, adult
CPT/HCPCS: 36415; 36416; 71045; 71275; 76705; 80053; 80202; 81001; 82550; 83036; 83605; 83690; 83735; 83880; 83930; 83935; 84100; 84300; 84439; 84443; 84484; 85025; 85610; 85730; 86140; 87040; 87077; 87086; 87149; 87186; 87449; 87899; 93005; 93010; 93306; 94640; 94660; 94760; 96361; 96365; 96367; 96375; C9113; J0692; J1815; J1956; J2060; J2185; J2270; J2272; J2405; J2550; J2920; J3010; J3370; J3370-JW; J3475; J3490; J7050; J7512; J7611; J7620; J7626; Q9967